=== PATIENT | female | born 1960 | race Caucasian/White ===

== ENCOUNTER 2016-10-23 12:40 | Emergency (ER) | payer MEDICARE, OTHER ==
--- NOTE | ~2016-10-23 | CR173 ---
[facility]. [facility] A Service of [facility] & [facility] RADIOLOGY TEXT RESULTS PATIENT: MICHELLE RODRÍGUEZ LOCATION: SED : 64 UNIT #: [id number] AGE: [address]: ANASTACIA ESTRADA SEX: F ORDER DR: [id number] [place] [id number] E MR#: [id number] Acc #: [id number] NAME: MICHELLE RODRÍGUEZ : 1960 SEX: F STUDY DATE/TIME: 10/23/2016 13:25 UNIT: SED ROOM: STUDY DESCRIPTION: CR Knee 3 Views Rt Attending Physician: Anastacia Estrada Ordering Physician: Agustín Brian M.D. Primary Care Physician: Bryant Jones P.A.-C. MEDICAL IMAGING REPORT This report is preliminary unless electronic signature is present. EXAM Right knee 10/23/2016 1325 hours HISTORY 56-year-old woman who fell out of a car just prior to admission today. Knee pain with abrasion. COMPARISON None. FINDINGS AP, lateral and sunrise views demonstrate no knee joint effusion or fracture. No radiopaque foreign body. No significant degenerative change. IMPRESSION No joint effusion, fracture or radiopaque foreign body. Dictated by... Michelle Landa M.D. THIS IS AN ELECTRONICALLY VERIFIED REPORT Michelle Landa M.D. at 10/23/2016 9:02 PM COSTA/yuan TD: 10/23/2016 20:38 JOB #: [id number] MEDICAL IMAGING REPORT Page 1 of 1
--- NOTE | ~2016-10-23 | CR142 ---
[facility] A Service of [facility] & [facility] RADIOLOGY TEXT RESULTS PATIENT: MICHELLE RODRÍGUEZ LOCATION: SED : 64 UNIT #: [id number] AGE: [address]: ANASTACIA ESTRADA SEX: F ORDER DR: [id number] [place] [id number] E MR#: [id number] Acc #: [id number] NAME: MICHELLE RODRÍGUEZ : 1960 SEX: F STUDY DATE/TIME: 10/23/2016 13:25 UNIT: SED ROOM: STUDY DESCRIPTION: CR Hand Min 3 Views Rt Attending Physician: (Res) Anastacia Estrada Ordering Physician: Staff Doctor Not On Primary Care Physician: Bryant Jones P.A.-C. MEDICAL IMAGING REPORT This report is preliminary unless electronic signature is present. EXAM Right hand, 3 views, 10/23/2016, 1325 hours. HISTORY Patient fell out of car just prior to admission today. Abrasion on hand and knee. Pain. FINDINGS AP, lateral and oblique views demonstrate overall normal bone density. There is no fracture, dislocation or radiopaque foreign body. IMPRESSION No fracture, dislocation or radiopaque foreign body. Dictated by... Michelle Landa M.D. THIS IS AN ELECTRONICALLY VERIFIED REPORT Michelle Landa M.D. at 10/23/2016 9:02 PM COSTA/yolanda TD: 10/23/2016 20:17 JOB #: [id number] MEDICAL IMAGING REPORT Page 1 of 1
[~2016-10-23 12:40] MED LIST: BENZONATATE PO; BLOOD PRESSURE PILL; LIPITOR20 MG DOB; TOPROL XL 50 MG50 MG PO; [UNRECOGNIZED DRUG - REMARK]
== END 2016-10-23 14:38 | disposition home or self-care (01) ==
LOC: SED 12:40
DX: S80.01XA Contusion of right knee, initial encounter (principal); S60.511A Abrasion of right hand, initial encounter; E11.9 Type 2 diabetes mellitus without complications; I10 Essential (primary) hypertension; Z79.899 Other long term (current) drug therapy; Z23 Encounter for immunization; W20.8XXA Other cause of strike by thrown, projected or falling object, initial encounter; Y92.098 Other place in other non-institutional residence as the place of occurrence of the external cause
CPT/HCPCS: 73130; 73562; 90471; 90715; 99283